=== PATIENT | male | born 2000 | race African-American/Black ===

== ENCOUNTER 2025-06-14 19:37 | Emergency (ER) | payer OTHER, BC ==
[~2025-06-14] VITALS: Ht 175.3 cm; Wt 54.4 kg
[2025-06-14] MEDS ORDERED: KETOROLAC TROMETHAMINE 15 MG/ML VIAL ONE (20:44)
[2025-06-14] MEDS: KETOROLAC TROMETHAMINE 15 MG/ML VIAL IM ONE (20:48)
[2025-06-14] MEDS ORDERED: KETO10TA2 PO (22:10)
[2025-06-14 22:24] VITALS: BP 113/76; TEMP 98.7; O2SAT 97
== END 2025-06-14 22:24 | disposition home or self-care (01) ==
LOC: ER 19:42
DX: R07.9 Chest pain, unspecified (principal); M94.0 Chondrocostal junction syndrome [Tietze]; F19.11 Other psychoactive substance abuse, in remission; F17.200 Nicotine dependence, unspecified, uncomplicated
CPT/HCPCS: 99285; 71045; 96372; 93005; 85378; 36415; J1885

== ENCOUNTER 2025-06-24 10:11 | Emergency (ER) | payer OTHER, BC ==
[~2025-06-24] VITALS: Ht 175.3 cm; Wt 59.0 kg
[~2025-06-24 10:11] MED LIST: KETO10TA2 PO
[2025-06-24 10:50] LABS: PLATELET COUNT (AUTO) 247 K/uL (150-450); RED BLOOD CELL COUNT(AUTO) 4.23 MIL/uL (4.5-6.0); RED CELL DISTRIBUTION WIDTH 14.0 % (11.5-15.0); WHITE BLOOD COUNT (AUTO) 7.3 K/uL (4.3-11.0)
[2025-06-24 10:53] LABS: CALCIUM, SERUM 8.9 mg/dL (8.5-10.1); CREATININE 0.8 mg/dL (0.6-1.3); SODIUM SERUM 140 mmol/L (136-145); UREA NITROGEN, BLOOD 8 mg/dL (7-18)
[2025-06-24 11:08] LABS: NT-PRO BNP 52 pg/mL (0-125)
[2025-06-24] MEDS ORDERED: CYCL15CA23 PO (11:22)
[2025-06-24] MEDS ORDERED: LIDO1ADH82 TP (11:22)
[2025-06-24] MEDS ORDERED: KETO10TA2 PO (11:22)
[2025-06-24 11:37] LABS: APPEARANCE,URINE CLEAR (CLEAR); BLOOD, URINE Negative Ery/uL (NEGATIVE); LEUKOCYTE ESTERASE ,URINE Negative (NEGATIVE); UGLUCOSE Negative (NEGATIVE)
[2025-06-24 11:39] LABS: NITRITE, URINE NEGATIVE (NEGATIVE)
[2025-06-24 11:46] VITALS: BP 115/73; TEMP 97.9; O2SAT 99
[2025-06-24 11:48] LABS: ADD URINE CULTURE NO; SQUAMOUS EPITHELIAL CELL,UR Few /HPF (None Seen)
[2025-06-24 22:52] LABS: HIV-1/2 ANTIBODY NON REACTIVE (NONREACTIVE)
[2025-06-25 08:07] LABS: RAPID PLASMA REAGIN QUAL. Non Reactive (Non Reactive)
[2025-06-26 01:07] LABS: CHLAMYDIA TRACHOMATIS NAA Negative (Negative); NEISSERIA GONORRHOEAE NAA Negative (Negative)
== END 2025-06-24 11:47 | disposition home or self-care (01) ==
LOC: ER 10:18
DX: R07.89 Other chest pain (principal); R00.2 Palpitations; F17.200 Nicotine dependence, unspecified, uncomplicated; Z90.49 Acquired absence of other specified parts of digestive tract
CPT/HCPCS: 36415; 71045-TC; 80048-TC; 81001; 83880; 84484-TC; 85025-TC; 85378-TC; 86592; 86593; 87491; 87591; 87806